=== PATIENT | female | born 1960 | race African-American/Black ===

== ENCOUNTER 2017-02-16 17:19 | Inpatient (IN) | payer OTHER ==
[~2017-02-16] VITALS: Ht 172.7 cm; Wt 68.9 kg
[2017-02-16 19:02] LABS: BASOPHIL % 0.5 % (0-2); PLATELET COUNT 313 x10^3mcL (130-400); RED CELL DISTRIBUTION WIDTH 14.1 % (11.5-14.5)
[2017-02-16 19:06] LABS: CALCIUM 8.9 mg/dL (8.5-10.1); CARBON DIOXIDE 24.6 mmol/L (21-32); CREATININE SERUM 1.5 mg/dL (0.6-1.0); POTASSIUM SERUM 3.9 mmol/L (3.5-5.1)
[2017-02-16 19:12] LABS: BILIRUBIN TOTAL 0.2 mg/dL (0.20-1.00); TOTAL PROTEIN, SERUM 7.3 g/dL (6.4-8.2)
[2017-02-16 19:13] LABS: ALBUMIN 3.3 g/dL (3.4-5.0)
[2017-02-16] MEDS ORDERED: LISINOPRIL40 MG PO (19:57)
[2017-02-16] MEDS ORDERED: [UNRECOGNIZED DRUG - REMARK] (19:57)
[2017-02-16] MEDS ORDERED: METFORMIN HCL1000 MG PO (19:57)
[2017-02-16] MEDS ORDERED: AMARYL4 MG PO (19:57)
[2017-02-16 21:04] VITALS: BP 124/86
[2017-02-16 21:22] LABS: CHOLESTEROL/HDL RATIO 3.8
[2017-02-16 21:28] LABS: T3 TOTAL 1.01 ng/mL
[2017-02-16 21:31] LABS: FREE T4 1.06 ng/dL (0.76-1.46); T4(THYROXINE) 8.8 ug/dL (4.7-13.3)
[2017-02-16 22:21] LABS: MAGNESIUM 2.2 mg/dL (1.8-2.4); PHOSPHOROUS 2.9 mg/dL (2.5-4.9)
[2017-02-16 23:33] VITALS: BP 124/86
[2017-02-17 00:22] LABS: microscopic required? YES; urine erythrocyte NEGATIVE (NEGATIVE)
[2017-02-17 00:30] LABS: AMPHETAMINE QUAL UR NONE DETECTED (NEG <=1000)
[2017-02-17 05:49] LABS: BASOPHIL % 0.4 % (0-2); PLATELET COUNT 326 x10^3mcL (130-400)
[2017-02-17 06:02] VITALS: BP 96/62
[2017-02-17 06:05] LABS: CALCIUM 8.5 mg/dL (8.5-10.1); CARBON DIOXIDE 26.1 mmol/L (21-32); CREATININE SERUM 1.1 mg/dL (0.6-1.0); MAGNESIUM 2.1 mg/dL (1.8-2.4); PHOSPHOROUS 3.9 mg/dL (2.5-4.9); POTASSIUM SERUM 3.6 mmol/L (3.5-5.1)
[2017-02-17 06:52] LABS: RED CELL DISTRIBUTION WIDTH 14.6 % (11.5-14.5)
[2017-02-17 08:46] VITALS: BP 89/57
[2017-02-17 13:21] VITALS: BP 100/62
[2017-02-17 17:18] VITALS: BP 115/66
[2017-02-17 19:02] VITALS: BP 118/73
[2017-02-17 21:32] VITALS: BP 103/63
[2017-02-18] VITALS (13 sets, daily range): BP systolic 96–141; BP diastolic 58–83; Ht 172.7 cm; Wt 68.9 kg
[2017-02-18 03:07] LABS: BASOPHIL % 1.4 % (0-2); PLATELET COUNT 285 x10^3mcL (130-400); RED CELL DISTRIBUTION WIDTH 13.6 % (11.5-14.5)
[2017-02-18 03:30] LABS: CALCIUM 8.3 mg/dL (8.5-10.1); CARBON DIOXIDE 25.4 mmol/L (21-32); CHLORIDE SERUM 112 mmol/L (98-107); GFR1 > 60 mL/min; GLUCOSE SERUM 121 mg/dL (74-106); POTASSIUM SERUM 4.4 mmol/L (3.5-5.1); SODIUM SERUM 144 mmol/L (136-145)
[2017-02-18 03:32] LABS: ALBUMIN 2.6 g/dL (3.4-5.0)
[2017-02-18 15:47] LABS: IRON 47 ug/dL (50-170); TOTAL IRON BINDING CAPACITY 275 ug/dL (250-450)
[2017-02-18 15:51] LABS: RED BLOOD CELLS 4.02 M/mm3 (4.10-5.10)
[2017-02-19 05:46] VITALS: BP 100/60
[2017-02-19 06:28] LABS: CALCIUM 8.3 mg/dL (8.5-10.1); CREATININE SERUM 1.1 mg/dL (0.6-1.0); POTASSIUM SERUM 4.7 mmol/L (3.5-5.1)
[2017-02-19 07:11] LABS: BASOPHIL % 0.5 % (0-2); PLATELET COUNT 242 x10^3mcL (130-400)
[2017-02-19 07:22] LABS: RED CELL DISTRIBUTION WIDTH 14.6 % (11.5-14.5)
[2017-02-19 10:32] VITALS: BP 99/55
[2017-02-19 14:59] VITALS: BP 127/64
[2017-02-19] MEDS ORDERED: CLOPIDOGREL75 M1 PO (15:04)
[2017-02-19] MEDS ORDERED: ECO81 PO (15:05)
[2017-02-19] MEDS ORDERED: NEU100 PO (15:05)
[2017-02-19] MEDS ORDERED: ATORVASTATIN CA40 M1 PO (15:05)
[2017-02-19] MEDS ORDERED: LAC PO (15:06)
[2017-02-19] MEDS ORDERED: THERA TABS1 TAB PO (15:06)
[2017-02-19] MEDS ORDERED: LEVAQUIN750 MG PO (15:07)
[2017-02-19 15:27] VITALS: BP 127/64
== END 2017-02-19 16:07 | disposition home or self-care (01) | DRG 191 ==
LOC: ED 17:19 → DU 19:55
PROVIDERS: Emergency Medicine; Family Medicine; Internal Medicine Interventional Cardiology; ADMIT Family Medicine
PROC: B2111ZZ Fluoroscopy of Multiple Coronary Arteries using Low Osmolar Contrast (ICD-10-PCS; 2017-02-18)
PROC: B2151ZZ Fluoroscopy of Left Heart using Low Osmolar Contrast (ICD-10-PCS; 2017-02-18)
PROC: B41D1ZZ Fluoroscopy of Aorta and Bilateral Lower Extremity Arteries using Low Osmolar Contrast (ICD-10-PCS; 2017-02-18)
PROC: 4A023N7 Measurement of Cardiac Sampling and Pressure, Left Heart, Percutaneous Approach (ICD-10-PCS; principal; 2017-02-18 14:00)
DX: I11.0 Hypertensive heart disease with heart failure (principal); N17.0 Acute kidney failure with tubular necrosis; E43 Unspecified severe protein-calorie malnutrition; I50.43 Acute on chronic combined systolic (congestive) and diastolic (congestive) heart failure; D64.9 Anemia, unspecified; N17.9 Acute kidney failure, unspecified; E11.65 Type 2 diabetes mellitus with hyperglycemia; M19.90 Unspecified osteoarthritis, unspecified site; M54.30 Sciatica, unspecified side; N39.0 Urinary tract infection, site not specified; E11.51 Type 2 diabetes mellitus with diabetic peripheral angiopathy without gangrene; Z82.49 Family history of ischemic heart disease and other diseases of the circulatory system; Z83.3 Family history of diabetes mellitus; E78.00 Pure hypercholesterolemia, unspecified; Z98.84 Bariatric surgery status; H54.41 Blindness, right eye, normal vision left eye; I42.9 Cardiomyopathy, unspecified
CPT/HCPCS: CLHCL; 80307; 82962; 83880; 84439; 97110-GP; C1760; C1769; C1887; C1894; J0696; J1644; J1650; J2001; J2250; J2270; J2405; J3010; J3490; J7030; J7040; Q0092; Q9967

== ENCOUNTER 2017-06-07 18:47 | Emergency (ER) | payer OTHER ==
[~2017-06-07 18:47] MED LIST: AMARYL4 MG PO; ATORVASTATIN CA40 M1 PO; CLOPIDOGREL75 M1 PO; ECO81 PO; LAC PO; LEVAQUIN750 MG PO; LISINOPRIL40 MG PO; METFORMIN HCL1000 MG PO; NEU100 PO; THERA TABS1 TAB PO; [UNRECOGNIZED DRUG - REMARK]
[2017-06-07 22:55] VITALS: BP 148/81
== END 2017-06-07 22:55 | disposition home or self-care (01) ==
LOC: ED 18:47
DX: S16.1XXA Strain of muscle, fascia and tendon at neck level, initial encounter (principal); S20.211A Contusion of right front wall of thorax, initial encounter; S00.511A Abrasion of lip, initial encounter; S09.90XA Unspecified injury of head, initial encounter; R10.9 Unspecified abdominal pain; F41.9 Anxiety disorder, unspecified; R55 Syncope and collapse; M19.90 Unspecified osteoarthritis, unspecified site; I10 Essential (primary) hypertension; E11.40 Type 2 diabetes mellitus with diabetic neuropathy, unspecified; Z79.84 Long term (current) use of oral hypoglycemic drugs; Z79.899 Other long term (current) drug therapy; V49.40XA Driver injured in collision with unspecified motor vehicles in traffic accident, initial encounter; Y93.89 Activity, other specified; Y92.89 Other specified places as the place of occurrence of the external cause; Y99.8 Other external cause status
CPT/HCPCS: J2060; J2270; J2405

== ENCOUNTER 2018-04-30 10:24 | Emergency (ER) | payer OTHER ==
[~2018-04-30] VITALS: Ht 170.2 cm; Wt 68.9 kg
[2018-04-30 10:44] VITALS: Ht 170.2 cm; Wt 68.9 kg
[2018-04-30 12:22] VITALS: BP 138/87
== END 2018-04-30 12:22 | disposition home or self-care (01) ==
LOC: ED 10:24
DX: M54.5 Low back pain (principal); E11.9 Type 2 diabetes mellitus without complications; I10 Essential (primary) hypertension

== ENCOUNTER 2020-11-12 08:33 | Emergency (ER) | payer OTHER ==
[~2020-11-12] VITALS: Ht 170.2 cm; Wt 59.4 kg
[2020-11-12 08:50] VITALS: Ht 170.2 cm; Wt 59.4 kg
[2020-11-12 09:55] LABS: CALCIUM 9.2 mg/dL (8.5-10.1); CARBON DIOXIDE 23.9 mmol/L (21-32); CREATININE SERUM 1.1 mg/dL (0.6-1.0); POTASSIUM SERUM 4.1 mmol/L (3.5-5.1)
[2020-11-12 09:57] LABS: ALBUMIN 3.7 g/dL (3.4-5.0); BILIRUBIN TOTAL 0.35 mg/dL (0.20-1.00)
[2020-11-12 10:09] LABS: BASOPHIL % 1.3 % (0.2-1.3); PLATELET COUNT 399 x10^3mcL (179-408)
[2020-11-12 10:42] LABS: RED CELL DISTRIBUTION WIDTH 16.8 % (12.3-17.7)
[2020-11-12 10:43] LABS: rbc morphology (normal/abnorm) NORMAL (NORMAL)
[2020-11-12 16:54] VITALS: BP 162/77
== END 2020-11-12 16:54 | disposition home or self-care (01) ==
LOC: ED 08:33
DX: R07.89 Other chest pain (principal); R06.02 Shortness of breath; E11.9 Type 2 diabetes mellitus without complications; I10 Essential (primary) hypertension; E11.40 Type 2 diabetes mellitus with diabetic neuropathy, unspecified; I25.2 Old myocardial infarction